=== PATIENT | female | born 1955 | race Caucasian/White ===

== ENCOUNTER → 2017-02-26 | Outpatient (REF) | payer OTHER | LOC: M SFHCWAGY 14:52 | PROVIDERS: ATTEND Nurse Practitioner Women's Health | DX: Z12.4 Encounter for screening for malignant neoplasm of cervix (principal); N95.2 Postmenopausal atrophic vaginitis ==

== ENCOUNTER → 2017-07-22 | Outpatient (REF) | payer OTHER | LOC: M LAB REF 09:10 | PROVIDERS: ATTEND Physician Assistant | DX: R30.0 Dysuria (principal) ==

== ENCOUNTER → 2018-03-13 | Outpatient (REF) | payer OTHER | LOC: M SFHCWAGY 08:31 | DX: Z12.4 Encounter for screening for malignant neoplasm of cervix (principal) ==

== ENCOUNTER → 2019-03-18 | Outpatient (REF) | payer OTHER ==
[2019-03-20 17:16] LABS: HPV HYBRID CAPTURE II Negative (Negative)
== END ==
LOC: M SFHCWAGY 14:42
PROVIDERS: ATTEND Nurse Practitioner Women's Health
DX: Z12.4 Encounter for screening for malignant neoplasm of cervix (principal); N95.2 Postmenopausal atrophic vaginitis
CPT/HCPCS: 87624; G0123

== ENCOUNTER → 2020-04-20 | Outpatient (REF) | payer OTHER | LOC: M SFHCWAGY 18:10 | PROVIDERS: ATTEND Nurse Practitioner Women's Health | DX: Z12.4 Encounter for screening for malignant neoplasm of cervix (principal); N95.2 Postmenopausal atrophic vaginitis ==

== ENCOUNTER → 2021-06-13 | Outpatient (CLI) | payer OTHER ==
--- NOTE | 2021-06-13 17:05 | REPMRS ---
Patient History The patient states she had a clinical breast exam in June 2021. Patient is postmenopausal and is nulliparous. Patient states no breast complaints today. Patient has signed MRS History Sheet. Digital Woman Screen Mammo: June 13, 2021 - Exam #: [id number] Bilateral CC and MLO view(s) were taken. Technologist: Sowmya Nieves, Technologist Prior study comparison: April 21, 2020, bilateral digital mammo screening bilat, performed at [facility]. April 06, 2019, left breast digital mammo diagnostic unilateral, performed at [facility]. April 02, 2019, bilateral digital mammo screening bilat, performed at [facility]. FINDINGS: There are scattered fibroglandular densities. The Volpara volumetric breast density category is:B. There has been no change in the appearance of the mammogram from the prior studies. There is a mild amount of scattered fibroglandular density which is fairly symmetric. There is no interval development of dominant mass, architectural distortion, or grouped microcalcification suggestive of malignancy. 3-D tomosynthesis shows no additional findings. Assessment: BI-RADS/ACR category 1 mammogram. Negative Mammogram. Recommendation Routine screening mammogram of both breasts in 1 year (for women over age 40). This patient's [facility] Lifetime Breast Cancer Risk is estimated at 8.2 %. This mammogram was interpreted with the aid of an FDA-approved computer-aided dectection system. Electronically Signed By: Jaiden Fuchs MD 06/13/21 [id number]
== END ==
LOC: M WHC 15:36
PROVIDERS: ATTEND Nurse Practitioner Women's Health
DX: Z12.31 Encounter for screening mammogram for malignant neoplasm of breast (principal)

== ENCOUNTER → 2022-06-26 | Outpatient (CLI) | payer OTHER, SELFPAY | LOC: M WHC 15:25 | PROVIDERS: ATTEND Advanced Practice Midwife | DX: Z12.31 Encounter for screening mammogram for malignant neoplasm of breast (principal) ==

== ENCOUNTER → 2023-03-26 | Outpatient (CLI) | payer OTHER | LOC: M WUC 10:04 | PROVIDERS: ATTEND Nurse Practitioner Family | DX: M47.812 Spondylosis without myelopathy or radiculopathy, cervical region (principal) ==

== ENCOUNTER → 2023-08-27 | Outpatient (CLI) | payer OTHER, MEDICARE | LOC: M WHC 08:33 | PROVIDERS: ATTEND Nurse Practitioner Family | DX: Z12.31 Encounter for screening mammogram for malignant neoplasm of breast (principal) | CPT/HCPCS: 76882; 77066; G0279 ==

== ENCOUNTER → 2023-12-29 | Outpatient (REF) | payer OTHER ==
[~2023-12-29] MED LIST: CLOB60OI5 TOP; KETO2SHA8 TOP; NITR100C2; RA M10TA PO
== END ==
LOC: M LAB REF 19:08
PROVIDERS: ATTEND Nurse Practitioner Family
DX: R30.0 Dysuria (principal)

== ENCOUNTER 2023-12-31 12:31 | Inpatient (IN) | payer OTHER, MEDICARE ==
[~2023-12-31] VITALS: Ht 157.5 cm; Wt 54.9 kg
[2023-12-31] MEDS ORDERED: NITR100C2 (12:39)
[2023-12-31 13:14] LABS: BASO % 0.1 % (0.0-1.0); HEMATOCRIT 44.1 % (36.0-47.0); HEMOGLOBIN 14.8 g/dl (12.0-15.5); LYMPH # 1.3 10^3/uL (1.5-5.0); LYMPH % 7.2 % (24.0-44.0); MEAN CORPUSCULAR HEMOGLOBIN 28.9 pg (27.0-33.0); MEAN CORPUSCULAR HGB CONC 33.6 g/dl (32.0-36.5); MEAN CORPUSCULAR VOLUME 86.1 fl (80.0-96.0); MONO # 1.5 10^3/uL (0.0-0.8); MONO % 8.2 % (2.0-8.0); NEUTROPHILS # 14.9 10^3/uL (1.5-8.5); PLATELET COUNT, AUTOMATED 252 10^3/uL (150-450); RED BLOOD COUNT 5.12 10^6/uL (4.00-5.40); WHITE BLOOD COUNT 17.7 10^3/uL (4.0-10.0)
[2023-12-31 13:34] LABS: LIPASE 27 U/L (12-53)
[2023-12-31 13:36] LABS: ALKALINE PHOSPHATASE 114 U/L (46-116); ALT/SGPT 18 U/L (7.0-40); AST/SGOT 32 U/L (<34); BILIRUBIN,DIRECT 0.2 MG/DL (<0.4); BILIRUBIN,TOTAL 0.7 MG/DL (0.3-1.2); BLOOD UREA NITROGEN 32 MG/DL (9-23); CALCIUM LEVEL 9.3 MG/DL (8.3-10.6); CARBON DIOXIDE LEVEL 27 MMOL/L (20-31); CHLORIDE LEVEL 106 MMOL/L (98-107); CREATININE FOR GFR 0.74 MG/DL (0.55-1.30); GLOMERULAR FILTRATION RATE > 60.0 (>45); GLUCOSE, FASTING 120 MG/DL (74-106); POTASSIUM SERUM 3.8 MMOL/L (3.5-5.1); SODIUM LEVEL 141 MMOL/L (136-145); TOTAL PROTEIN 7.3 G/DL (5.7-8.2)
[2023-12-31 17:14] LABS: PROCALCITONIN <0.04 ng/ml
[2023-12-31] MEDS: cefTRIAXone SOD 1 GM in D5W MINI-BAG PLUS 50 ML IV ONE (17:20)
[2023-12-31 17:50] LABS: RSV AMPLIFICATION NEGATIVE (NEGATIVE)
[2023-12-31] MEDS ORDERED: CLOB60OI5 TOP (19:29)
[2023-12-31] MEDS ORDERED: RA M10TA PO (19:29)
[2023-12-31] MEDS ORDERED: KETO2SHA8 TOP (19:29)
[2023-12-31] MEDS ORDERED: KETOROLAC 30 MG/ML 1ML VIAL IV PRN (19:30)
[2023-12-31] MEDS ORDERED: HOME MED LIST COMPLETE! XX SCH (19:35)
[2023-12-31 23:25] VITALS: BP 130/55; TEMP 97.5; O2SAT 97
[2024-01-01 06:05] VITALS: BP 100/70; TEMP 97.6; O2SAT 98
[2024-01-01 06:32] LABS: HEMATOCRIT 41.4 % (36.0-47.0); HEMOGLOBIN 13.8 g/dl (12.0-15.5); MEAN CORPUSCULAR HEMOGLOBIN 29.3 pg (27.0-33.0); MEAN CORPUSCULAR HGB CONC 33.3 g/dl (32.0-36.5); MEAN CORPUSCULAR VOLUME 87.9 fl (80.0-96.0); PLATELET COUNT, AUTOMATED 206 10^3/uL (150-450); RED BLOOD COUNT 4.71 10^6/uL (4.00-5.40)
[2024-01-01 06:58] LABS: BLOOD UREA NITROGEN 33 MG/DL (9-23); CARBON DIOXIDE LEVEL 28 MMOL/L (20-31); CHLORIDE LEVEL 109 MMOL/L (98-107); CREATININE FOR GFR 0.67 MG/DL (0.55-1.30); GLOMERULAR FILTRATION RATE > 60.0 (>45); GLUCOSE, FASTING 94 MG/DL (74-106); MAGNESIUM LEVEL 1.9 MG/DL (1.8-2.4); POTASSIUM SERUM 3.6 MMOL/L (3.5-5.1); SODIUM LEVEL 143 MMOL/L (136-145)
[2024-01-01] MEDS ORDERED: CEFD300C PO (11:34)
[2024-01-01 11:52] LABS: ERYTHROCYTE SEDIMENTATION RATE 37 mm/hr (0-30)
[2024-01-01] MEDS ORDERED: cefTRIAXone SOD 1GM VIAL IM SCH (17:00)
[2024-01-01] MEDS ORDERED: cefTRIAXone SOD 1 GM in D5W MINI-BAG PLUS 50 ML IV SCH (17:00)
== END 2024-01-01 14:32 | disposition home or self-care (01) | DRG 694 ==
LOC: M ED 12:31 → M ED INP 18:21 → M MSPAV 23:15
PROVIDERS: ADMIT Student in an Organized Health Care Education/Training Program; ATTEND Student in an Organized Health Care Education/Training Program
DX: N13.30 Unspecified hydronephrosis (principal); R01.1 Cardiac murmur, unspecified; N39.0 Urinary tract infection, site not specified; N20.0 Calculus of kidney; F17.210 Nicotine dependence, cigarettes, uncomplicated; Z79.899 Other long term (current) drug therapy; Z11.52 Encounter for screening for COVID-19; Z90.49 Acquired absence of other specified parts of digestive tract

== ENCOUNTER → 2024-01-21 | Outpatient (CLI) | payer OTHER, MEDICARE ==
[~2024-01-21] MED LIST changes: +CEFD300C PO
== END ==
LOC: M RAD 12:45
PROVIDERS: ATTEND Urology
DX: N20.0 Calculus of kidney (principal); N13.30 Unspecified hydronephrosis

== ENCOUNTER → 2024-03-04 | Outpatient (CLI) | payer OTHER, MEDICARE ==
[~2024-03-04] MED LIST changes: +HYDR-3713 PO
[2024-03-04 12:11] LABS: HEMATOCRIT 41.3 % (36.0-47.0); HEMOGLOBIN 13.5 g/dl (12.0-15.5); MEAN CORPUSCULAR HEMOGLOBIN 28.5 pg (27.0-33.0); MEAN CORPUSCULAR HGB CONC 32.7 g/dl (32.0-36.5); MEAN CORPUSCULAR VOLUME 87.3 fl (80.0-96.0); PLATELET COUNT, AUTOMATED 217 10^3/uL (150-450); RED BLOOD COUNT 4.73 10^6/uL (4.00-5.40); WHITE BLOOD COUNT 8.5 10^3/uL (4.0-10.0)
[2024-03-04 12:41] LABS: ALBUMIN 3.8 G/DL (3.2-5.2); ALKALINE PHOSPHATASE 109 U/L (46-116); ALT/SGPT 25 U/L (7.0-40); AST/SGOT 16 U/L (<34); BILIRUBIN,TOTAL 0.5 MG/DL (0.3-1.2); BLOOD UREA NITROGEN 25 MG/DL (9-23); CALCIUM LEVEL 9.2 MG/DL (8.3-10.6); CARBON DIOXIDE LEVEL 27 MMOL/L (20-31); CHLORIDE LEVEL 111 MMOL/L (98-107); CREATININE FOR GFR 0.57 MG/DL (0.55-1.30); GLOMERULAR FILTRATION RATE > 60.0 (>45); GLUCOSE, FASTING 135 MG/DL (74-106); POTASSIUM SERUM 3.9 MMOL/L (3.5-5.1); SODIUM LEVEL 144 MMOL/L (136-145)
== END ==
LOC: M RAD 11:28
PROVIDERS: ATTEND Urology
DX: N20.0 Calculus of kidney (principal)

== ENCOUNTER 2024-03-11 08:23 | Day surgery (SDC) | payer OTHER, MEDICARE ==
[~2024-03-11] VITALS: Ht 157.5 cm; Wt 50.3 kg
[~2024-03-11 08:23] MED LIST changes: -HYDR-3713 PO; +MIDAZOLAM INJ 2MG/2ML VIAL As Ordered ONE; +fentaNYL 100 MCG/2 ML INJECTION As Ordered ONE; +propofoL 200 MG/20 ML VIAL As Ordered ONE; +propofoL 500 MG/50 ML VIAL As Ordered ONE
[2024-03-11] MEDS ORDERED: LR 1,000 ML IV SCH (09:15)
[2024-03-11] MEDS: ceFAZolin SOD 2 GM in IV 1 EA IV ONE (10:31)
[2024-03-11] MEDS ORDERED: KETOROLAC 60MG 2ML VIAL As Ordered ONE (10:36)
[2024-03-11] MEDS ORDERED: ACETAMINOPHEN 1000MG 100ML IV BAG As Ordered ONE (10:36)
[2024-03-11] MEDS ORDERED: HYDR-3713 PO (10:37)
[2024-03-11 11:19] VITALS: BP 150/68; TEMP 96.5; O2SAT 100
== END 2024-03-11 11:44 | disposition home or self-care (01) ==
LOC: M RAD 08:23
PROVIDERS: ATTEND Urology
DX: N20.0 Calculus of kidney (principal); F17.210 Nicotine dependence, cigarettes, uncomplicated; Z91.048 Other nonmedicinal substance allergy status; Z88.0 Allergy status to penicillin
CPT/HCPCS: 50590; 74018; J0131; J0690; J1885; J2250; J3010

== ENCOUNTER → 2024-04-06 | Outpatient (CLI) | payer OTHER, MEDICARE ==
[~2024-04-06] MED LIST changes: +HYDR-3713 PO; -MIDAZOLAM INJ 2MG/2ML VIAL As Ordered ONE; -fentaNYL 100 MCG/2 ML INJECTION As Ordered ONE; -propofoL 200 MG/20 ML VIAL As Ordered ONE; -propofoL 500 MG/50 ML VIAL As Ordered ONE
== END ==
LOC: M WUC 08:02
PROVIDERS: ATTEND Urology
DX: N20.0 Calculus of kidney (principal)

== ENCOUNTER → 2024-04-07 | Outpatient (REF) | payer OTHER, MEDICARE | LOC: M SMT 17:14 | PROVIDERS: ATTEND Physician Assistant | DX: Z48.816 Encounter for surgical aftercare following surgery on the genitourinary system (principal) ==

== ENCOUNTER → 2024-04-13 | Outpatient (CLI) | payer OTHER, MEDICARE ==
[2024-04-13 11:03] LABS: HEMATOCRIT 44.4 % (36.0-47.0); HEMOGLOBIN 14.1 g/dl (12.0-15.5); MEAN CORPUSCULAR HEMOGLOBIN 28.7 pg (27.0-33.0); MEAN CORPUSCULAR HGB CONC 31.8 g/dl (32.0-36.5); MEAN CORPUSCULAR VOLUME 90.4 fl (80.0-96.0); PLATELET COUNT, AUTOMATED 222 10^3/uL (150-450); RED BLOOD COUNT 4.91 10^6/uL (4.00-5.40); WHITE BLOOD COUNT 7.7 10^3/uL (4.0-10.0)
[2024-04-13 11:11] LABS: BLOOD UREA NITROGEN 19 MG/DL (9-23); CALCIUM LEVEL 9.5 MG/DL (8.3-10.6); CARBON DIOXIDE LEVEL 31 MMOL/L (20-31); CHLORIDE LEVEL 108 MMOL/L (98-107); CREATININE FOR GFR 0.63 MG/DL (0.55-1.30); GLOMERULAR FILTRATION RATE > 60.0 (>45); GLUCOSE, FASTING 148 MG/DL (74-106); POTASSIUM SERUM 3.8 MMOL/L (3.5-5.1); SODIUM LEVEL 142 MMOL/L (136-145)
== END ==
LOC: M WUC 08:04
PROVIDERS: ATTEND Physician Assistant
DX: Z01.818 Encounter for other preprocedural examination (principal)

== ENCOUNTER 2024-04-22 08:08 | Day surgery (SDC) | payer OTHER, MEDICARE ==
[~2024-04-22] VITALS: Ht 157.5 cm; Wt 49.4 kg
[2024-04-22] MEDS ORDERED: ONDANSETRON 4MG 2ML VIAL As Ordered ONE (09:43)
[2024-04-22] MEDS ORDERED: LIDOCAINE 2% 100MG/5ML SDV (FOR ANES.) As Ordered ONE (09:43)
[2024-04-22] MEDS ORDERED: propofoL 200 MG/20 ML VIAL As Ordered ONE (09:43)
[2024-04-22] MEDS ORDERED: fentaNYL 100 MCG/2 ML INJECTION As Ordered ONE (09:43)
[2024-04-22] MEDS ORDERED: ACETAMINOPHEN 1000MG 100ML IV BAG As Ordered ONE (09:43)
[2024-04-22] MEDS: ceFAZolin SOD 2 GM in IV 1 EA IV ONE (10:15)
[2024-04-22] MEDS ORDERED: oxyCODONE 5MG TAB PO PRN (11:00)
[2024-04-22] MEDS ORDERED: ONDANSETRON 4MG 2ML VIAL IV PRN (11:00)
[2024-04-22] MEDS ORDERED: LR 1,000 ML IV SCH (11:00)
[2024-04-22 11:55] VITALS: BP 180/89; TEMP 97.1; O2SAT 100
== END 2024-04-22 12:05 | disposition home or self-care (01) ==
LOC: M SDC 08:08
PROVIDERS: ATTEND Urology
DX: N20.0 Calculus of kidney (principal); Z88.0 Allergy status to penicillin; Z91.048 Other nonmedicinal substance allergy status; Z88.8 Allergy status to other drugs, medicaments and biological substances; F17.210 Nicotine dependence, cigarettes, uncomplicated
CPT/HCPCS: 50590; 74018; J0131; J0690; J2405; J3010

== ENCOUNTER → 2024-05-07 | Outpatient (CLI) | payer OTHER, MEDICARE | LOC: M PLAIMG 15:43 → M PLALAB 15:43 | PROVIDERS: ATTEND Urology | DX: N20.0 Calculus of kidney (principal) ==

== ENCOUNTER → 2024-05-14 | Outpatient (REF) | payer OTHER, MEDICARE | LOC: M SMT 16:54 | PROVIDERS: ATTEND Physician Assistant | DX: N20.0 Calculus of kidney (principal) ==

== ENCOUNTER → 2024-09-01 | Outpatient (CLI) | payer OTHER, MEDICARE | LOC: M WHC 08:36 | PROVIDERS: ATTEND Nurse Practitioner Family | DX: Z12.31 Encounter for screening mammogram for malignant neoplasm of breast (principal); N63.41 Unspecified lump in right breast, subareolar ==

== ENCOUNTER → 2024-09-21 | Outpatient (CLI) | payer OTHER, MEDICARE | LOC: M WHC 10:27 | PROVIDERS: ATTEND Nurse Practitioner Family | DX: Z12.31 Encounter for screening mammogram for malignant neoplasm of breast (principal) ==

== ENCOUNTER → 2024-11-11 | Outpatient (CLI) | payer OTHER, MEDICARE | LOC: M PLAIMG 16:11 | PROVIDERS: ATTEND Physician Assistant | DX: N20.0 Calculus of kidney (principal) ==

== ENCOUNTER → 2024-12-03 | Outpatient (CLI) | payer OTHER, MEDICARE | LOC: M RAD 16:46 | PROVIDERS: ATTEND Physician Assistant | DX: N20.0 Calculus of kidney (principal) ==

== ENCOUNTER → 2025-09-05 | Outpatient (CLI) | payer OTHER, MEDICARE ==
[~2025-09-05] MED LIST changes: +KETO120S5 TOP; -KETO2SHA8 TOP; +MELA10TA22 PO; -RA M10TA PO
== END ==
LOC: M WHC 09:24
PROVIDERS: ATTEND Nurse Practitioner Family
DX: Z12.31 Encounter for screening mammogram for malignant neoplasm of breast (principal); M81.0 Age-related osteoporosis without current pathological fracture

== ENCOUNTER → 2025-09-26 | Outpatient (CLI) | payer OTHER, MEDICARE ==
[~2025-09-26] MED LIST changes: -MELA10TA22 PO; +MELA10TA30 PO
== END ==
LOC: M WHC 11:12
PROVIDERS: ATTEND Nurse Practitioner Family
DX: R92.8 Other abnormal and inconclusive findings on diagnostic imaging of breast (principal); Z12.31 Encounter for screening mammogram for malignant neoplasm of breast
CPT/HCPCS: 77066; G0279